=== PATIENT | male | born 2000 | race Caucasian/White ===

== ENCOUNTER 2020-07-05 01:22 | Emergency (ER) | payer OTHER, SELFPAY ==
[2020-07-05 02:52] VITALS: BP 138/77; PULSE 81; RESP 16; TEMP 36.9; O2SAT 99; BMI 36.5
--- NOTE | 2020-07-05 03:01 | ED.WOUNDLAC ---
HPI - Wound/Laceration General Chief Complaint: Wound/Laceration Stated Complaint: LAC ON FINGER Time Seen by Provider: 07/05/20 03:01 Source: patient Mode of arrival: ambulatory History of Present Illness HPI narrative: This is a 20-year-old male without significant past medical history who states that he was cleaning a glass which broke and cut his pinky finger the right hand. Patient states he has had his tetanus vaccine within the past 5 years. Related Data Allergies Allergy/AdvReac Type Severity Reaction Status Date / Time No Known Allergies Allergy Verified 07/05/20 02:55 Review of Systems Review of Systems: Pertinent positives and negatives as stated in HPI 10 point review of systems is otherwise negative. [facility] Past Medical History Source: nursing notes reviewed Medical History No known health problems No known health problems Social History Social History Advance Directives: No Advance Directives Information Provided: No Physical Exam Vital Signs: Vital Signs: Last Vital Signs Temp 98.4 F 07/05/20 02:52 Pulse 81 07/05/20 02:52 Resp 16 07/05/20 02:52 BP 138/77 07/05/20 02:52 Pulse Ox 99 07/05/20 02:52 Body Mass Index 36.5 VITAL SIGNS: Reviewed. GENERAL: Well developed, well nourished, in no acute distress. HEAD: Normocephalic/atraumatic NOSE: Nares patent bilateral OROPHARYNX: no oral lesions noted, posterior pharynx clear NECK: Supple, no adenopathy LUNGS: Normal breath sounds. SpO2<99> CARDIOVASCULAR: Regular rate and rhythm without noted murmurs ABDOMEN: Soft, non-tender, non-distended with bowel sounds. RIGHT PINKY: 1 CM SUPERFICIAL abrasions/laceration to the lateral aspect of the 5th digit, hemostatic NEUROLOGIC: Alert and oriented x 4. Course Course Course Narrative: This is a 20-year-old male with history and clinical presentation very superficial laceration to the right 5th digit which was successfully repaired with a single chromic gut suture due to the location and superficial depth. Tdap was not administered given patient's history of recent vaccination. Patient tolerated the procedure well and was discharged home in stable condition. Procedures Laceration Laceration 1: Site: hand (Fifth digit) Side (If applicable): right Size (cm): 1 Description: linear Depth: simple, single layer Local Anesthetic: lidocaine 1% Amount of anesthesia used (mL): 5 Pre-repair: wound explored, irrigated extensively and deep structures intact Skin layer closed with: other (Chromic gut) Size (cm): 5-0 Number of sutures: 1 Technique: simple, interrupted Discharge Plan Discharge Clinical Impression: Laceration Patient Disposition: Home, Self-Care Instructions: Finger Laceration (ED) Additional Instructions: 1. Recommend [id number] Tylenol/ibuprofen as needed for pain control. 2. A dissolvable suture has been placed in your laceration and will gradually dissolve on its own. 3. May cleanse hands with soap and water, blot dry, apply bacitracin with Band-Aid once a day. Do not hesitate to return to the emergency department for any acute problems. Referrals: Physician,Unknown [Primary Care Provider] - 2 days
[2020-07-05] MEDS: Lidocaine HCl 1 % MPF 5 ML VIAL INFILTRATI (03:49)
== END 2020-07-05 05:35 | disposition home or self-care (01) ==
PROVIDERS: Emergency Provider Student in an Organized Health Care Education/Training Program
DX: S61.216A Laceration without foreign body of right little finger without damage to nail, initial encounter (principal); M79.641 Pain in right hand; W25.XXXA Contact with sharp glass, initial encounter; Y93.9 Activity, unspecified; Y92.9 Unspecified place or not applicable; Y99.9 Unspecified external cause status
CPT/HCPCS: 12001; 99283

== ENCOUNTER 2020-12-07 06:11 | Emergency (ER) | payer OTHER, SELFPAY ==
--- NOTE | ~2020-12-07 | XR_ITS ---
EXAMINATION: XR CHEST CLINICAL INFORMATION: SOB. COMPARISON: Chest 03/25/2015 TECHNIQUE: 2 views of the chest were obtained. FINDINGS: No significant abnormality is noted involving the heart, lungs, mediastinum, bony thorax or soft tissues. XR/XR chest 2V IMPRESSION: Unremarkable chest examination.
[2020-12-07 06:42] VITALS: BP 143/82; PULSE 74; RESP 16; TEMP 36.4; O2SAT 98; BMI 38.0
--- NOTE | 2020-12-07 06:46 | ECG_ITS ---
Test Reason : SOB Blood Pressure : / mmHG Vent. Rate : 069 BPM Atrial Rate : 069 BPM P-R Int : 174 ms QRS Dur : 098 ms QT Int : 374 ms P-R-T Axes : 045 061 027 degrees QTc Int : 400 ms Normal sinus rhythm Normal ECG When compared with ECG of 25-MAR-2015 22:31, No significant change was found Referred By: Bianca Baez Electronically Signed By:Mitch Bah
--- NOTE | 2020-12-07 06:46 | ED.GENADULT ---
HPI - General Adult General Chief complaint: General Medical Stated complaint: SoB Time Seen by Provider: 12/07/20 06:45 Source: patient Mode of arrival: ambulatory Limitations: no limitations History of Present Illness complaint: anxiety, dyspnea Onset (ago): hour(s) (4am today) Severity: mild Relieving factors: none Exacerbating factors: none Associated symptoms: shortness of breath Treatments prior to arrival: none Related Data Previous Rx's Medication Instructions Recorded hydroxyzine HCl 50 mg tablet 50 mg PO Q8H PRN #30 tab 12/07/20 Allergies Allergy/AdvReac Type Severity Reaction Status Date / Time No Known Allergies Allergy Verified 07/05/20 02:55 Review of Systems Review of Systems: Constitutional : No Fever, No Chills ENT/Mouth : No sore throat, No Rhinorrhea, No Swallowing Difficulty Eyes: No Eye Pain, No Swelling, No Redness Cardiovascular : No Chest Pain, positive SOB, No Orthopnea, no Edema Respiratory : No Cough, No Sputum, No Wheezing, positive dyspnea Gastrointestinal : No Nausea, No Vomiting, No Diarrhea, No abdominal Pain, No Hematochezia, No Melena Genitourinary : No Dysuria, No Urinary Frequency, No Hematuria Musculoskeletal : No joint pain, No Myalgias Skin : No Skin Lesions, No rash Neuro : No Weakness, No Numbness, No Dizziness, No Headache Psych : pos Anxiety/Panic, No Depression Heme/Lymph: No Bruising, No Lymphadenopathy Endocrine : No Polyuria, No Polydipsia All other systems reviewed and are negative PMFSH Past Medical History Medical History No known health problems No known health problems Social History Social History Advance Directives: No Advance Directives Information Provided: No Physical Exam Vital Signs: Vital Signs: Last Vital Signs Temp 97.6 F 12/07/20 06:42 Pulse 74 12/07/20 06:42 Resp 16 12/07/20 06:42 BP 143/82 H 12/07/20 06:42 Pulse Ox 98 12/07/20 06:42 Body Mass Index 38.0 Appearance: Alert. Oriented X3. No acute distress. Eyes: Pupils equal, round and reactive to light. ENT: Pharynx normal. Neck: Normal inspection. Neck supple. CVS: Normal heart rate and rhythm. Pulses normal. Respiratory: No respiratory distress. Breath sounds normal. Abdomen: Soft and nontender. Skin: Skin warm and dry. Normal skin color. Normal skin turgor. Extremities: No lower extremity edema. No calf ttp Neuro: Oriented X 3. No motor deficit. No sensory deficit. Medical Decision Making MDM Narrative Medical decision making narrative: 20 yo male with a hx of anxiety attack in the past comes in feeling dyspnea - no chest pain , no GIB symptoms, PERC negative, feels this is similar to prior attack at this time EKG, CXR and PO atarax ordered ECG Data Attestation: I personally reviewed and interpreted this ECG as follows: Interpretation: Rate: 69 Rhythm: NSR [place]: normal Normal P waves. Normal MAGALI. Normal QRS complex. ST T wave : normal no АЛЕКСАНДР qTC: normal prior studies: no acute ischemia The study has been interpreted contemporaneously by me. . Discharge Plan Discharge Clinical Impression: Acute dyspnea, Anxiety Patient Disposition: Home, Self-Care Instructions: Dyspnea (ED), Anxiety (ED) Additional Instructions: return to ED for any worsening symptoms or concerns Prescriptions: New hydroxyzine HCl 50 mg tablet 50 mg PO Q8H PRN (Reason: anxiety) Qty: 30 RF: 0 Referrals: Physician,None [Primary Care Provider] - 5 days (PCP if not better) Stand Alone Forms: Work/School Release
[2020-12-07] MEDS: hydrOXYzine HCL 25 MG TABLET PO (07:18)
== END 2020-12-07 07:41 | disposition home or self-care (01) ==
PROVIDERS: Emergency Provider Emergency Medicine
DX: F41.9 Anxiety disorder, unspecified (principal); R06.00 Dyspnea, unspecified
CPT/HCPCS: 71046; 93005; 99283

== ENCOUNTER 2021-06-29 13:04 | Emergency (ER) | payer OTHER, SELFPAY ==
[2021-06-29 14:17] VITALS: BP 149/79; PULSE 62; RESP 18; TEMP 36.6; O2SAT 98; BMI 38.4
[2021-06-29 14:31] LABS: Hematocrit 43.2 % (42.0-52.0); Hemoglobin 14.1 g/dl (14.0-18.0); Mean Corpuscular HGB Conc 32.6 g/dl (31.0-36.0); Mean Corpuscular Hemoglobin 26.9 pg (27.0-33.0); Mean Corpuscular Volume 82.3 fL (80.0-98.0); Mean Platelet Volume 9.1 fL (9.4-12.4); Platelet Count 298 X10*3/uL (160-400); Red Blood Count 5.25 X10*6/uL (4.60-5.80); Red Cell Distribution Width 13.2 % (11.0-16.0); White Blood Count 8.4 X10*3/uL (4.8-10.8)
[2021-06-29 14:52] LABS: Anion Gap 14 (12-20); Blood Urea Nitrogen 10 mg/dL (9-16); Calcium 9.7 mg/dL (8.4-10.2); Carbon Dioxide 26 mmol/L (22-29); Chloride 103 mmol/L (96-108); Creatinine Clr Calc Pharmacy 134.8; Estimated Glomerular Filt Rate > 60; Glucose Random 99 mg/dL (60-115); Potassium 4.6 mmol/L (3.3-5.1); Sodium 138 mmol/L (135-145)
[2021-06-29 14:59] LABS: COVID-19 Test Negative (Negative)
--- NOTE | 2021-06-29 15:12 | ED_ITS ---
HPI - Anxiety General Chief Complaint: Dyspnea Stated Complaint: Anxiety Diff Breathing Time Seen by Provider: 06/29/21 14:26 Source: patient Mode of arrival: ambulatory Limitations: no limitations History of Present Illness HPI narrative: 21 y/o male with history of anxiety who presents to the ER with worsening an xiety for the last 2-3 weeks. He reports symptoms of SOB, chest tightness, sweatiness and shaking hands that comes and goes with his anxiety. He reports a history of prior episodes like this and was previously prescribed hydroxyzine with good effect. He changed PCP's and has not seen a doctor in 2 years. He is not on any current medications. He previously saw a therapist in his teens but not since then. He reports intermittent marijuana use which has made his anxiety worse. He states he is thinking of quitting. He denies any other drug use or alcohol use. MD complaint: anxiety Onset (ago): week(s) Symptoms: dyspnea, chest pain, extremity numbness/tingling, dry mouth and sense of impending doom Severity: moderate Quality: intermittent Place: home History of similar episodes: Yes Provoking factors: emotional stress and work/job stress Relieving factors: nothing Exacerbating factors: nothing Associated symptoms: shortness of breath and diaphoresis Related Data Previous Rx's Medication Instructions Recorded hydroxyzine HCl 50 mg tablet 50 mg PO Q8H PRN #30 tab 12/07/20 hydroxyzine HCl 50 mg tablet 50 mg PO TID PRN #20 tab 06/29/21 Allergies Allergy/AdvReac Type Severity Reaction Status Date / Time No Known Allergies Allergy Verified 07/05/20 02:55 Review of Systems Review of Systems: Constitutional: No Fever, No Chills ENT/Mouth: No sore throat, No Rhinorrhea, No Swallowing Difficulty Eyes: No vision changes Cardiovascular: No Chest Pain, + SOB, No Orthopnea, No Edema Respiratory: No Cough, No Sputum, No Wheezing, No dyspnea Gastrointestinal: + Nausea, No Vomiting, No Diarrhea, No abdominal Pain Musculoskeletal: No joint pain, No Myalgias Skin: No Skin Lesions, No rash Neuro: No Weakness, No Numbness, No Dizziness, No Headache Psych: + Anxiety/Panic, No Depression, No SI, No HI, No AH/VH Heme/Lymph:No Lymphadenopathy E PMFSH Past Medical History Medical History No known health problems No known health problems Social History Social History Advance Directives: No Advance Directives Information Provided: No Physical Exam Vital Signs: Vital Signs: Last Vital Signs Temp 98 F 06/29/21 14:17 Pulse 62 06/29/21 14:17 Resp 18 06/29/21 14:17 BP 149/79 H 06/29/21 14:17 Pulse Ox 98 06/29/21 14:17 BMI result Body Mass Index 38.4 Appearance: Alert. Oriented X3. No acute distress. Eyes: Pupils equal, round and reactive to light. ENT: Pharynx normal. Neck: Normal inspection. Neck supple. CVS: Normal heart rate and rhythm. Pulses normal. Respiratory: No respiratory distress. Breath sounds normal. Abdomen: Soft and nontender. +BS x4 Skin: Skin warm and dry. Normal skin color. Normal skin turgor. No rashes. Extremities: No lower extremity edema. Neuro/psych: Oriented X 3. No motor deficit. No sensory deficit. makes eye contact, speaks in complete sentences, good insight and judgement, no SI or HI Course Course Course Narrative: 21 y/o male presenting with intermittent episodes of anxiety, worsening over the last 2-3 weeks. In search of a job and stressed. Exacerbated by marijuana. Labs today are unremarkable. COVID negative. He appears well and has good insight to his anxiety issues. He is appreciative of a PRN medication like hydroxyzine. We discussed how he may benefit from prevatative medication like SSRI as well as therapy. He agrees to reach out to his new PCP to arrange evaluation and will give info for [facility]. At this time patient is stable for d/c home with outpatient resources and PRN hydroxyzine. Pt agrees with plan. MDM - Anxiety Lab Data Result diagrams: 06/29/21 14:22 06/29/21 14:22 Labs: Lab Results 06/29/21 06/29/21 06/29/21 Range/Units 14:22 14:22 14:22 WBC 8.4 (4.8-10.8) X10*3/uL RBC 5.25 (4.60-5.80) X10*6/uL Hgb 14.1 (14.0-18.0) g/dl Hct 43.2 (42.0-52.0) % MCV 82.3 (80.0-98.0) fL MCH 26.9 L (27.0-33.0) pg MCHC 32.6 (31.0-36.0) g/dl RDW 13.2 (11.0-16.0) % Plt Count 298 (160-400) X10*3/uL MPV 9.1 L (9.4-12.4) fL Absolute Nucleated RBC 0.000 (0.0-0.012) X10*3/uL Nucleated RBC % (auto) 0.0 (0.0-0.2) /100WBC Sodium 138 (135-145) mmol/L Potassium 4.6 (3.3-5.1) mmol/L Chloride 103 (96-108) mmol/L Carbon Dioxide 26 (22-29) mmol/L Anion Gap 14 (12-20) BUN 10 (9-16) mg/dL Creatinine 1.08 (0.5-1.4) mg/dL Estim Creat Clear Calc 134.8 Estimated GFR > 60 Random Glucose 99 (60-115) mg/dL Calcium 9.7 (8.4-10.2) mg/dL COVID-19 ([facility]) Negative (Negative) COVID-19 Clin Com See Note Discharge Plan Discharge Clinical Impression: Anxiety Patient Disposition: Home, Self-Care Instructions: Anxiety (ED) Additional Instructions: Your lab workup today was normal. Recommend following up with your doctor ELIZABET as well as calling [facility] to arrange therapy Take the prescribed medication as needed for anxiety If you develop new or worsening symptoms call 911 or come back to the ER for further evaluation. Prescriptions: New hydroxyzine HCl 50 mg tablet 50 mg PO TID PRN (Reason: anxiety) Qty: 20 0RF No Action hydroxyzine HCl 50 mg tablet 50 mg PO Q8H PRN (Reason: anxiety) Qty: 30 0RF
== END 2021-06-29 15:30 | disposition home or self-care (01) ==
PROVIDERS: Emergency Provider Emergency Medicine; PCP Internal Medicine
DX: F41.9 Anxiety disorder, unspecified (principal); Z20.822 Contact with and (suspected) exposure to COVID-19; F12.90 Cannabis use, unspecified, uncomplicated
CPT/HCPCS: 80048; 85027; 87635; 99283

== ENCOUNTER 2023-01-02 12:50 | Emergency (ER) | payer OTHER, SELFPAY ==
--- NOTE | ~2023-01-02 | XR_ITS ---
EXAMINATION: XR CHEST CLINICAL INFORMATION: Left-sided chest pain and difficulty breathing. COMPARISON: 12/07/2020 chest radiographs. TECHNIQUE: Frontal view of the chest was obtained. FINDINGS: No significant abnormality is noted involving the heart, lungs, mediastinum, bony thorax or soft tissues. XR/XR chest 1V IMPRESSION: No acute cardiopulmonary process.
--- NOTE | 2023-01-02 13:12 | ED_ITS ---
HPI - General Adult General Chief complaint: Chest Pain Stated complaint: chest pain/ anxiety Time Seen by Provider: 01/02/23 17:13 Related Data Previous Rx's Medication Instructions Recorded hydroxyzine HCl 50 mg tablet 50 mg PO Q8H PRN anxiety #30 tabs 12/07/20 hydroxyzine HCl 50 mg tablet 50 mg PO TID PRN anxiety #20 tabs 06/29/21 Allergies Allergy/AdvReac Type Severity Reaction Status Date / Time No Known Allergies Allergy Verified 01/02/23 13:16 [facility] Past Medical History Medical History No known health problems No known health problems Social History Social History Advance Directives: No Physical Exam ED Vital Signs: Vital Signs - 24 hr 01/02/23 13:13 Temperature 98.7 F Pulse Rate 65 Respiratory Rate 18 Blood Pressure 123/83 Pulse Oximetry 99 Oxygen Delivery Method Room Air BMI result Body Mass Index 35.5 Course Course Course Narrative: This is an RME: Additional HPI, ROS, PE not included below will be deferred to primary provider. 22 year old male presenting with chest pain. He believes its secondary to anxiety as this is how his anxiety normally presents. Discharge Plan Discharge Clinical Impression: Eloped from emergency department Patient Disposition: Elopement Prescriptions: No Action hydroxyzine HCl 50 mg tablet 50 mg PO Q8H PRN (Reason: anxiety) Qty: 30 0RF hydroxyzine HCl 50 mg tablet 50 mg PO TID PRN (Reason: anxiety) Qty: 20 0RF Discharge Date/Time: 01/02/23 17:58
[2023-01-02 13:13] VITALS: BP 123/83; PULSE 65; RESP 18; TEMP 37.1; O2SAT 99; BMI 35.5
--- NOTE | 2023-01-02 13:36 | MHC.EDTECH ---
patient left the ED room . unable to get EKG. RN aware
== END 2023-01-02 17:58 | disposition left against medical advice (07) ==
PROVIDERS: Emergency Provider Emergency Medicine; PCP Internal Medicine
DX: R07.89 Other chest pain (principal); F41.1 Generalized anxiety disorder; F43.0 Acute stress reaction
CPT/HCPCS: 71045; 99281; 99283

== ENCOUNTER 2024-11-11 08:09 | Emergency (ER) | payer OTHER, SELFPAY ==
[2024-11-11 08:16] VITALS: BP 132/72; PULSE 57; RESP 14; TEMP 36.8; O2SAT 99; BMI 31.2
--- NOTE | 2024-11-11 08:43 | PC.NURSE ---
Patient is a 24 yo male who presents with a pilonidal cyst which started on Monday. Patient alert and oriented. Lungs clear bilat. Respirations even and non-labored. Abdomen soft, non-tender with positive bowel sounds.
--- OUTSIDE RECORDS SUMMARY | 2024-11-11 08:59 | XMS_ITS | Clinical Summary ---
Author Organization [employer] Address [address] [place] [address] Care Team Providers Care Medical Insurance Verifier Name Role Phone Unavailable Primary Care Provider Unavailabl e Social History Tobacco Use Types Packs/Day Years Used Date Smoking Tobacco: Never Assessed Comments Unknown Sex and Gender Information Value Date Recorded Sex Assigned at Not on file Legal Sex Female 1:51 PM EST Gender Identity Not on file Sexual Orientation Not on file Plan of Treatment Health Maintenance Due Date Last Done Comments Depression Screening 1998 HIV Screening 1998 SDOH Screening 1998 Disability Screening 1998 Alcohol/Substance Use Screening 2010 Tobacco Screening 2010 Family Planning (PISQ) 2013 HPV Vaccines (1 - 3-dose series) 2013 Hepatitis C Screening 2016 DTaP/Tdap/Td Vaccines (1 - Tdap) 2017 Hepatitis B Vaccines (1 of 3 - 19+ 3-dose series) 2017 Pap Smear 2019 COVID-19 Vaccine (1 - 2023-2 5 season) 2024 Influenza Vaccine (#1) 2025 Zoster Vaccines (1 of 2) 2048 RSV Patients and Pa tients Aged 60 years or older (1 - 1-dose 75+ series) 2073 HIB Vaccines Aged Out No longer eligi ble based on patient's age to complete this topic Hepatitis A Vaccines Aged Out No long er eligible based on patient's age to complete this topic IPV Vaccines Aged Out No longer eligi ble based on patient's age to complete this topic Meningococcal B Vaccine Aged Out No l onger eligible based on patient's age to complete this topic Meningococcal Vaccine Aged Out No larry jm eligible based on patient's age to complete this topic Pneumococcal Vaccine: Pediat rics (0 to 5 Years) and At-Risk Patients (6 to 49) Years Aged Out No longer eligible b ased on patient's age to complete this topic RSV under 20 months Aged Out No longe r eligible based on patient's age to complete this topic Rotavirus Vaccines Aged Out No longer eligible based on patient's age to complete this topic
[2024-11-11 09:18] VITALS: BP 116/79; PULSE 62; RESP 16; TEMP 36.6; O2SAT 99
--- NOTE | 2024-11-11 09:21 | ED_ITS ---
HPI - Skin/Abscess/Foreign Bdy General Chief complaint: Skin/Abscess/Foreign Body Stated complaint: Lower back pain Time Seen by Provider: 11/11/24 08:34 Source: patient and RN notes reviewed Mode of arrival: ambulatory Limitations: no limitations History of Present Illness ED Provider: Carina Dean PA-C HPI narrative: This is a 24-year-old male, with a history of congenital solitary kidney, who presents emergency department with concerns of pain, swelling on tailbone which started on November 09, 2024. Patient denies any history of similar symptoms in the past. No fevers or chills. Took ibuprofen and gabapentin which was his mother's which provided him without any relief. Patient denies any injury or trauma to his back. No drainage from the area. No other complaints or concerns at this time. Onset (ago): day(s) Quality: aching Pain Consistency: constant Relieving factors: none Exacerbating factors: none Context: none Associated symptoms: denies other symptoms Treatments prior to arrival: none Related Data Previous Rx's ?Medication ?Instructions ?Recorded hydroxyzine HCl 50 mg tablet 50 mg PO Q8H PRN anxiety #30 tabs 12/07/20 hydroxyzine HCl 50 mg tablet 50 mg PO TID PRN anxiety #20 tabs 06/29/21 acetaminophen 500 mg tablet 1,000 mg (2 x 500 mg) PO Q 8H PRN 11/11/24 (Tylenol Extra Strength) pain #30 tabs cephalexin 500 mg capsule 500 mg PO QID 7 days #28 cap s 11/11/24 doxycycline hyclate 100 mg tablet 100 mg PO BID 7 days #14 tabs 11/11/24 Allergies Allergy/AdvReac Type Severity Reaction Status Date / Time No Known Allergies Allergy Verified 11/11/24 08:18 Review of Systems Review of Systems: Yes all other systems are reviewed and are negative Constitutional: Constitutional: Reports as per [facility] Past Medical History Medical History No known health problems No known health problems Social History Social History Smoked in Last 30 Days: No Advance Directives: No Advance Directives Information Provided: Yes Physical Exam Vital Signs: Vital Signs: Last Vital Signs Temp 97.9 F 11/11/24 09:18 Pulse 62 11/11/24 09:18 Resp 16 11/11/24 09:18 BP 116/79 11/11/24 09:18 Pulse Ox 99 11/11/24 09:18 O2 Del Method Room Air 11/11/24 09:18 BMI result Body Mass Index 31.2 Const: Other: General: Awake, alert, and oriented X3. No acute distress. HEENT: Normal inspection CVS: Normal heart rate and rhythm. Pulses normal. Respiratory: No respiratory distress Skin: Gluteal cleft with tenderness to palpation, no induration, no fluctuance, positive drainage noted. No surrounding erythema or warmth. Extremities: Normal to inspection Neuro: Oriented X 3. No motor deficit. No sensory deficit. Medical Decision Making Medical Decision Making [facility] Narrative: This is a 24-year-old male who presents emergency department with concerns of pain on tailbone for the last 2 days. Denies history of similar symptoms in the past. Exam findings concerning for early pilonidal cyst. There is no induration or fluctuance noted, slight drainage noted. Will discharged on antibiotics, stressed the importance of warm compresses, and following up with General surgery. Patient was given strict return precautions. He understands and agrees with plan. Patient stable for discharge. Differential Diagnosis Differential Diagnoses: The differential diagnosis associated with the presentation includes Pilonidal cyst, pilonidal abscess, cellulitis, lipoma Discharge Plan Discharge Clinical Impression: Pilonidal cyst Patient Disposition: Home, Self-Care Instructions: Pilonidal Cyst (ED) Additional Instructions: You were seen in the emergency department and your exam was concerning for an early pilonidal cyst. These can become very infected quickly therefore we are starting you on some antibiotics. Take prescribed antibiotic as directed, finish the entire course even if your symptoms improve. Warm compresses 5-6 times per day can help, warm Sitz baths can also help. Keep area clean and dry. This may start to drain, this is a normal process. You need to follow-up with a general surgeon to remove this or follow-up with this, call today to make an appointment. If any new or worsening symptoms occur including but not limited to fevers, chills, worsening pain, worsening swelling, please return for re-evaluation. Prescriptions: New cephalexin 500 mg capsule 500 mg PO QID 7 Days Qty: 28 0RF doxycycline hyclate 100 mg tablet 100 mg PO BID 7 Days Qty: 14 0RF acetaminophen [Tylenol Extra Strength] 500 mg tablet 1,000 mg PO Q8H PRN (Reason: pain) Qty: 30 0RF No Action hydroxyzine HCl 50 mg tablet 50 mg PO Q8H PRN (Reason: anxiety) Qty: 30 0RF hydroxyzine HCl 50 mg tablet 50 mg PO TID PRN (Reason: anxiety) Qty: 20 0RF Referrals: [facility] [facility] [Provider Group, General Surgery] Stand Alone Forms: Work/School Release Print Language: Zambian
[2024-11-11 09:46] VITALS: BP 116/79; PULSE 62; RESP 16; TEMP 36.6; O2SAT 99
== END 2024-11-11 09:47 | disposition home or self-care (01) ==
PROVIDERS: Emergency Provider Emergency Medicine; PCP Family Medicine
DX: L05.91 Pilonidal cyst without abscess (principal); M54.50 Low back pain, unspecified
CPT/HCPCS: 99283; 99284

== ENCOUNTER 2025-05-06 12:28 | Emergency (ER) | payer OTHER, SELFPAY ==
[2025-05-06 13:42] VITALS: BP 118/59; PULSE 63; RESP 16; TEMP 36.1; O2SAT 99; BMI 35.5
--- NOTE | 2025-05-06 13:42 | ED.SKABFB ---
HPI - Skin/Abscess/Foreign Bdy General Chief complaint: Skin/Abscess/Foreign Body Stated complaint: burn on hand Time Seen by Provider: 05/06/25 13:45 Source: patient, RN notes reviewed and old records reviewed Mode of arrival: ambulatory History of Present Illness ED Provider: Mirtha Donato PA-C HPI narrative: 25-year-old male with no significant past medical history presenting to ED complaining of burn to left palm from melting Styrofoam cup around 4 a.m. last night. Denies injury to other area, open wound, fever, drainage Related Data Previous Rx's ?Medication ?Instructions ?Recorded hydroxyzine HCl 50 mg tablet 50 mg PO Q8H PRN anxiety #30 tabs 12/07/20 hydroxyzine HCl 50 mg tablet 50 mg PO TID PRN anxiety #20 tabs 06/29/21 acetaminophen 500 mg tablet 1,000 mg (2 x 500 mg) PO Q8H PRN 11/11/24 (Tylenol Extra Strength) pain #30 tabs cephalexin 500 mg capsule 500 mg PO QID 7 days #28 caps 11/11/24 doxycycline hyclate 100 mg tablet 100 mg PO BID 7 days #14 tabs 11/11/24 bacitracin 500 unit/gram topical 1 appl topical BID #144 ea 05/06/25 packet Allergies Allergy/AdvReac Type Severity Reaction Status Date / Time No Known Allergies Allergy Verified 05/06/25 13:47 Review of Systems Review of Systems: Yes all other systems are reviewed and are negative Constitutional: Constitutional: Reports as per [facility] Past Medical History Attestation statement: The following information was validated with the patient. Source: old records reviewed Medical History No known health problems No known health problems Social History Social History Advance Directives: No Advance Directives Information Provided: No Physical Exam Vital Signs: Vital Signs: Last Vital Signs Temp 96.9 F 05/06/25 13:42 Pulse 63 05/06/25 13:42 Resp 16 05/06/25 13:42 BP 118/59 L 05/06/25 13:42 Pulse Ox 99 05/06/25 13:42 O2 Del Method Room Air 05/06/25 13:42 BMI result Body Mass Index 35.5 Const: General: cooperative, healthy appearing and no acute distress Orientation/consciousness: patient oriented x3 Limitations: no limitations HEENT: Head: Yes normal to inspection and Yes atraumatic Ears: hearing grossly normal bilaterally General nose exam: Normal external nose present Face and sinus: Yes normal facial exam Eyes: General: appearance normal, both eyes and all related structures EOM: EOMs intact bilaterally Neck: Neck: Yes normal visual inspection and Yes no meningeal signs Resp: Effort & Inspection: normal respiratory effort and no respiratory distress Cardio: Rate: regular rate Skin: Other: Small superficial blisters noted to left palm. Blisters intact. No surrounding erythema. No drainage. Not circumferential. Full range of motion to hand intact Rashes: no rashes Neuro: General: patient oriented x3, tone normal and no meningeal signs Cranial nerves: Yes CN's II-XII intact bilaterally Gait exam (Neuro): Normal gait present Extrem: General: Yes normal to inspection Medical Decision Making Medical Decision Making MDM Narrative: 25-year-old male with no significant past medical history presenting to ED complaining of burn to left palm from melting Styrofoam cup around 4 a.m. last night. On exam vital signs stable, NAD, nontoxic appearing, physical exam as noted above. Concern for superficial burn. Blisters intact. No evidence of overlying infection. Burn not circumferential. Plan: Bacitracin and dressing applied Please refer to course for remaining clinical decision making, interpretation of labs/imaging results, and discussions with consultants and/or family members. Results discussed with patient including worrisome signs and symptoms and strict return precautions, and when to return to the emergency department. They verbalized understanding and feel safe for discharge at this time. Differential Diagnosis Differential Diagnoses: The differential diagnosis associated with the presentation includes As above External Record Review External record reviewed: Inpatient record, Office record, Outpatient record, Prior outpatient labs, Prior outpatient radiology, Primary care record and Outside ED record Tests considered The following testing was considered but not selected: As above Prescription Management I considered prescription management with: Pain Medication and Antibiotic Chronic Conditions Patient?s care impacted by: Other Social Determinants Patient?s care significantly limited by Social Determinants of Health including: Other Social Determinant of Health Discharge Plan Discharge Clinical Impression: Superficial burn Patient Disposition: Home, Self-Care Instructions: Superficial Burn (DC) Additional Instructions: Apply bacitracin daily as prescribed Keep the blisters intact If area begins to look infected, is red, there is pus drainage or you have fever return to the ED Follow up with your doctor Prescriptions: New bacitracin 500 unit/gram packet 1 appl topical BID Qty: 144 0RF No Action hydroxyzine HCl 50 mg tablet 50 mg PO Q8H PRN (Reason: anxiety) Qty: 30 0RF hydroxyzine HCl 50 mg tablet 50 mg PO TID PRN (Reason: anxiety) Qty: 20 0RF cephalexin 500 mg capsule 500 mg PO QID 7 Days Qty: 28 0RF doxycycline hyclate 100 mg tablet 100 mg PO BID 7 Days Qty: 14 0RF acetaminophen [Tylenol Extra Strength] 500 mg tablet 1,000 mg PO Q8H PRN (Reason: pain) Qty: 30 0RF Referrals: Chad Armstrong MD [Primary Care Provider, Internal Medicine] - 1 week Stand Alone Forms: Work/School Release Print Language: [place]i
--- NOTE | 2025-05-06 14:00 | PC.NURSE ---
Bacitracin and dressing placed on burn. PT was discharged from [facility]
--- OUTSIDE RECORDS SUMMARY | 2025-05-06 17:43 | XMS_ITS | Clinical Summary ---
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
== END 2025-05-06 14:20 | disposition home or self-care (01) ==
PROVIDERS: Emergency Provider Emergency Medicine; PCP Family Medicine
DX: T23.102A Burn of first degree of left hand, unspecified site, initial encounter (principal); X19.XXXA Contact with other heat and hot substances, initial encounter; Y93.89 Activity, other specified; Y92.9 Unspecified place or not applicable; Y99.9 Unspecified external cause status
CPT/HCPCS: 16000; 99281; 99283